=== PATIENT | female | born 1950 | race Caucasian/White ===

== ENCOUNTER 2018-01-06 11:35 | Outpatient (CLI) | payer BC, MEDICARE | END 2018-01-06 11:36 | disposition home or self-care (01) | LOC: BICMAMMO 11:35 | PROVIDERS: ATTEND Internal Medicine | DX: Z12.31 Encounter for screening mammogram for malignant neoplasm of breast (principal); R92.1 Mammographic calcification found on diagnostic imaging of breast; Z80.3 Family history of malignant neoplasm of breast | CPT/HCPCS: 77063; 77067 ==

== ENCOUNTER 2020-07-19 14:20 | Outpatient (CLI) | payer MEDICARE, BC | END 2020-07-19 14:21 | disposition home or self-care (01) | LOC: BICMAMMO 14:20 | PROVIDERS: ATTEND Internal Medicine | DX: Z12.31 Encounter for screening mammogram for malignant neoplasm of breast (principal); Z80.3 Family history of malignant neoplasm of breast | CPT/HCPCS: 77063; 77067 ==

== ENCOUNTER 2021-01-17 10:09 | Outpatient (CLI) | payer MEDICARE, BC | END 2021-01-17 10:10 | disposition home or self-care (01) | LOC: BICULT 10:09 | PROVIDERS: ATTEND Internal Medicine Cardiovascular Disease | DX: E04.2 Nontoxic multinodular goiter (principal) | CPT/HCPCS: 76536 ==

== ENCOUNTER 2021-01-19 07:53 | Outpatient (CLI) | payer MEDICARE, BC ==
[2021-01-19] MEDS ORDERED: Iopamidol-370 76% 500 ML 1 ML ONE (11:56)
== END 2021-01-19 07:54 | disposition home or self-care (01) ==
LOC: BICCT 07:53
PROVIDERS: ATTEND Internal Medicine Cardiovascular Disease
DX: I65.23 Occlusion and stenosis of bilateral carotid arteries (principal); I67.2 Cerebral atherosclerosis
CPT/HCPCS: 70498; 82565; Q9967

== ENCOUNTER 2021-10-25 11:30 | Outpatient (CLI) | payer MEDICARE, BC | END 2021-10-25 11:31 | disposition home or self-care (01) | LOC: BICMAMMO 11:30 | PROVIDERS: ATTEND Internal Medicine | DX: Z12.31 Encounter for screening mammogram for malignant neoplasm of breast (principal); Z80.3 Family history of malignant neoplasm of breast | CPT/HCPCS: 77063; 77067 ==

== ENCOUNTER 2022-02-22 20:59 | Inpatient (IN) | payer MEDICARE, BC ==
[~2022-02-22 20:59] MED LIST: Iopamidol-370 76% 500 ML 1 ML ONE
[2022-02-22 22:01] LABS: #Basophils 0.1 thou/uL (0.0-0.2); #Eosinphils 0.5 thou/uL (0.0-0.7); #Lymphocytes 2.3 thou/uL (1.20-3.40); #Monocytes 0.8 thou/uL (0.11-0.59); #Neutrophils 7.9 thou/uL (1.40-6.50); %Basophils 0.9 % (0.0-1.0); %Eosinophils 4.4 % (0.0-10.0); %Lymphocytes 19.5 % (21.0-51.0); %Monocytes 7.1 % (0.0-10.0); Hemoglobin 11.6 g/dL (12.0-16.0); Mean Corpuscular HGB CONC 33.7 g/dL (32.0-36.0); Mean Corpuscular Hemoglobin 31.3 pg (27.0-31.0); Mean Corpuscular Volume 92.9 fl (78.0-98.0); Mean Platelet Volume 7.8 fL (7.4-10.4); Platelet Count 289 10x3/uL (130-400); Red Blood Cell (RBC) Count 3.72 mill/uL (4.20-5.40); White Blood Cell (WBC) Count 11.5 10x3/uL (4.8-10.8)
[2022-02-22] MEDS ORDERED: Ondansetron PF 4 MG/2 ML Vial ONE (22:11)
[2022-02-22 22:16] LABS: ALT (SGPT) 17 U/L (8-55); AST (SGOT) 27 U/L (5-34); Albumin 4.3 g/dL (3.4-4.8); Alkaline Phosphatase 72 U/L (40-110); Anion Gap 13 mmol/L (10-20); BUN (Urea Nitrogen) 9 mg/dL (9.8-20.1); Bilirubin, Total 0.7 mg/dL (0.2-1.2); Calc. Creatinine Clearance 0 mL/min (70-130); Calcium 9.2 mg/dL (7.8-10.44); Carbon Dioxide 22 mmol/L (23-31); Chloride 99 mmol/L (98-107); Estimated GFR 89; Globulin 2.9 g/dL (2.4-3.5); Glucose 88 mg/dL (80-115); Potassium 3.7 mmol/L (3.5-5.1); Protein, Total 7.2 g/dL (5.8-8.1); Sodium 130 mmol/L (136-145)
[2022-02-22 22:33] LABS: Bilirubin Negative (Negative); Blood, Urine Negative (Negative); Clarity Clear (Clear); Glucose, Urine (Dipstick) Normal (Negative); Ketone, Urine 60 mg/dL (Negative); Leukocyte Negative Leu/uL (Negative); Nitrite Negative (Negative); Protein, Urine (Dipstick) Negative (Neg-Trace); Specific Gravity, Urine 1.022 (1.002-1.036); Urobilinogen Normal mg/dL (Less than 2); pH, Urine 5.5 (5.0-9.0)
[2022-02-22] MEDS ORDERED: Morphine 4 MG/ML VIAL ONE (22:34)
[2022-02-22 22:37] LABS: Other Microscopic Description Less than 2 mL rec'd
[2022-02-23] MEDS ORDERED: Piperacillin/Tazobactam 4.5 GM VIAL ONE (01:21)
[2022-02-23] MEDS ORDERED: PROPOFOL 200 MG/20 ML VIAL ONE (02:39)
[2022-02-23] MEDS ORDERED: PHENYLEPHRINE-NS 100 MCG/ML 10 ML SYRINGE ONE (02:39)
[2022-02-23] MEDS ORDERED: Morphine Sulfate 2 MG/ML SYRINGE SLOW IVP PRN (02:59)
[2022-02-23] MEDS ORDERED: HYDROmorphone 2 MG/ML VIAL SLOW IVP PRN (02:59)
[2022-02-23] MEDS ORDERED: Promethazine HCl 25 MG/ML VIAL IM PRN (02:59)
[2022-02-23] MEDS ORDERED: PACU-Morphine 4MG/ML VIAL SLOW IVP PRN (02:59)
[2022-02-23] MEDS ORDERED: Promethazine HCl 25 MG/ML VIAL IVPB PRN (02:59)
[2022-02-23] MEDS ORDERED: Ondansetron HCl/PF 4 MG/2 ML Vial IVP PRN (02:59)
[2022-02-23] MEDS ORDERED: Ondansetron PF 4 MG/2 ML Vial IVP PRN (04:26)
[2022-02-23] MEDS ORDERED: Acetaminophen 650 MG Suppository PR PRN (04:26)
[2022-02-23] MEDS ORDERED: Ondansetron ODT 4 MG TAB PO PRN (04:26)
[2022-02-23] MEDS: Sodium Chloride 0.9% 1,000 ML IV SCH ×2 (05:56→19:12)
[2022-02-23 06:28] VITALS: BMI 21.2
[2022-02-23 07:56] LABS: #Basophils 0.1 thou/uL (0.0-0.2); #Eosinphils 0.5 thou/uL (0.0-0.7); #Lymphocytes 1.6 thou/uL (1.20-3.40); #Monocytes 0.5 thou/uL (0.11-0.59); #Neutrophils 5.1 thou/uL (1.40-6.50); %Basophils 1.2 % (0.0-1.0); %Eosinophils 5.9 % (0.0-10.0); %Lymphocytes 20.8 % (21.0-51.0); %Monocytes 6.3 % (0.0-10.0); %Neutrophils 65.8 % (42.0-75.0); Hemoglobin 10.5 g/dL (12.0-16.0); Mean Corpuscular HGB CONC 34.9 g/dL (32.0-36.0); Mean Corpuscular Hemoglobin 32.5 pg (27.0-31.0); Mean Corpuscular Volume 93.2 fl (78.0-98.0); Mean Platelet Volume 7.5 fL (7.4-10.4); Platelet Count 252 10x3/uL (130-400); Red Blood Cell (RBC) Count 3.23 mill/uL (4.20-5.40); White Blood Cell (WBC) Count 7.7 10x3/uL (4.8-10.8)
[2022-02-23 08:18] LABS: Anion Gap 10 mmol/L (10-20); BUN (Urea Nitrogen) 8 mg/dL (9.8-20.1); Calc. Creatinine Clearance 68 mL/min (70-130); Calcium 8.3 mg/dL (7.8-10.44); Carbon Dioxide 24 mmol/L (23-31); Chloride 102 mmol/L (98-107); Estimated GFR 94; Glucose 71 mg/dL (80-115); Potassium 3.8 mmol/L (3.5-5.1); Sodium 132 mmol/L (136-145)
[2022-02-23] MEDS: Amlodipine 5 MG TAB PO SCH ×2 (10:15→19:56)
[2022-02-23] MEDS: Bupropion 100 MG SR TAB PO SCH (10:15)
[2022-02-23] MEDS ORDERED: GoLYTELY 4,000 ml Bottle PO SCH (11:15)
[2022-02-23] MEDS: Rosuvastatin 10 MG TAB PO SCH (19:56)
[2022-02-24] MEDS ORDERED: GoLYTELY 4,000 ml Bottle PO SCH (00:15)
[2022-02-24] MEDS ORDERED: cefOXitin 2 GM in Sodium Chloride 0.9% 100 ML IVPB SCH ×2 (07:15→16:01)
[2022-02-24] MEDS: Sodium Chloride 0.9% 1,000 ML IV SCH ×3 (08:47→23:23)
[2022-02-24] MEDS: Amlodipine 5 MG TAB PO SCH ×2 (08:49→20:42)
[2022-02-24] MEDS: Bupropion 100 MG SR TAB PO SCH (10:08)
[2022-02-24] MEDS ORDERED: Sodium Chloride 0.9% 100 ML ONE (10:35)
[2022-02-24] MEDS ORDERED: cefOXitin 2 GM VIAL ONE (10:35)
[2022-02-24] MEDS ORDERED: fentaNYL PF 100 MCG/2 ML SYRINGE ONE (11:44)
[2022-02-24] MEDS ORDERED: HYDROmorphone 0.5 MG/0.5 ML SYRINGE ONE ×2 (11:45→14:21)
[2022-02-24] MEDS ORDERED: Ketamine 50 MG/ML (10ML VIAL) ONE (11:46)
[2022-02-24] MEDS ORDERED: PHENYLEPHRINE-NS 100 MCG/ML 10 ML SYRINGE ONE (11:59)
[2022-02-24] MEDS ORDERED: PROPOFOL 200 MG/20 ML VIAL ONE (11:59)
[2022-02-24] MEDS ORDERED: NEOSTIGMINE 3 MG/3 ML SYR 3 MG/3 ML SYRINGE ONE (11:59)
[2022-02-24] MEDS ORDERED: Dexamethasone 20 MG/5 ML VIAL ONE (11:59)
[2022-02-24] MEDS ORDERED: ePHEDrine 50 MG/ML VIAL ONE (11:59)
[2022-02-24] MEDS ORDERED: Glycopyrrolate 0.2 MG/ML 5 ML SYRINGE ONE (11:59)
[2022-02-24] MEDS ORDERED: Rocuronium Bromide 10 MG/ML (10ML VIAL) ONE (11:59)
[2022-02-24] MEDS ORDERED: Ondansetron PF 4 MG/2 ML Vial ONE (11:59)
[2022-02-24] MEDS ORDERED: Albumin 25% 100 ML ONE (12:25)
[2022-02-24] MEDS ORDERED: Promethazine HCl 25 MG/ML VIAL IVPB PRN (14:18)
[2022-02-24] MEDS ORDERED: Ondansetron HCl/PF 4 MG/2 ML Vial IVP PRN (14:18)
[2022-02-24] MEDS ORDERED: Meperidine HCl/PF 25 MG/ML VIAL SLOW IVP PRN (14:18)
[2022-02-24] MEDS ORDERED: Promethazine HCl 25 MG/ML VIAL IM PRN (14:18)
[2022-02-24] MEDS ORDERED: HYDROmorphone 2 MG/ML VIAL SLOW IVP PRN (14:18)
[2022-02-24] MEDS ORDERED: FENTANYL 50 MCG/ML 1 ML VIAL ONE ×2 (14:29→14:45)
[2022-02-24] MEDS: Morphine 4 MG/ML VIAL SLOW IVP PRN ×2 (17:08→20:41)
[2022-02-24] MEDS: cefOXitin 2 GM in Sodium Chloride 0.9% 100 ML IVPB SCH (20:39)
[2022-02-24] MEDS: Enoxaparin Sodium 40 MG/0.4 ML SYRINGE SC SCH (20:41)
[2022-02-24] MEDS: Rosuvastatin 10 MG TAB PO SCH (20:42)
[2022-02-25] MEDS: cefOXitin 2 GM in Sodium Chloride 0.9% 100 ML IVPB SCH ×2 (04:11→13:00)
[2022-02-25] MEDS: Morphine 4 MG/ML VIAL SLOW IVP PRN (04:11)
[2022-02-25] MEDS: Acetaminophen 325 MG TAB PO PRN (04:12)
[2022-02-25 06:44] LABS: #Lymphocytes 0.9 thou/uL (1.20-3.40); #Monocytes 0.8 thou/uL (0.11-0.59); #Neutrophils 10.3 thou/uL (1.40-6.50); %Basophils 0.2 % (0.0-1.0); %Eosinophils 0.1 % (0.0-10.0); %Lymphocytes 7.2 % (21.0-51.0); %Monocytes 6.4 % (0.0-10.0); %Neutrophils 86.1 % (42.0-75.0); Mean Corpuscular Hemoglobin 31.5 pg (27.0-31.0); Mean Corpuscular Volume 95.2 fl (78.0-98.0); Mean Platelet Volume 7.8 fL (7.4-10.4); Platelet Count 309 10x3/uL (130-400); RBC Distribution Width 11.3 % (11.5-14.5); Red Blood Cell (RBC) Count 3.19 mill/uL (4.20-5.40)
[2022-02-25 07:06] LABS: Anion Gap 14 mmol/L (10-20); BUN (Urea Nitrogen) 9 mg/dL (9.8-20.1); Calc. Creatinine Clearance 56 mL/min (70-130); Calcium 8.4 mg/dL (7.8-10.44); Carbon Dioxide 21 mmol/L (23-31); Chloride 100 mmol/L (98-107); Estimated GFR 75; Glucose 130 mg/dL (80-115); Potassium 3.8 mmol/L (3.5-5.1); Sodium 131 mmol/L (136-145)
[2022-02-25] MEDS: HYDROcodone/Acetaminophen 5/325 mg Tablet PO PRN ×2 (09:34→17:12)
[2022-02-25] MEDS: Amlodipine 5 MG TAB PO SCH ×2 (09:36→21:12)
[2022-02-25] MEDS: Bupropion 100 MG SR TAB PO SCH (17:24)
[2022-02-25] MEDS: Sodium Chloride 0.9% 1,000 ML IV SCH ×2 (17:24→21:13)
[2022-02-25] MEDS: Enoxaparin Sodium 40 MG/0.4 ML SYRINGE SC SCH (21:13)
[2022-02-25] MEDS: Rosuvastatin 10 MG TAB PO SCH (21:13)
[2022-02-26] MEDS: HYDROcodone/Acetaminophen 5/325 mg Tablet PO PRN ×4 (00:22→22:59)
[2022-02-26 05:51] LABS: #Eosinphils 0.2 thou/uL (0.0-0.7); #Lymphocytes 1.1 thou/uL (1.20-3.40); #Monocytes 0.5 thou/uL (0.11-0.59); #Neutrophils 6.8 thou/uL (1.40-6.50); %Basophils 0.2 % (0.0-1.0); %Lymphocytes 12.8 % (21.0-51.0); %Monocytes 5.9 % (0.0-10.0); Hemoglobin 9.2 g/dL (12.0-16.0); Mean Corpuscular HGB CONC 33.6 g/dL (32.0-36.0); Mean Corpuscular Hemoglobin 31.5 pg (27.0-31.0); Mean Corpuscular Volume 93.8 fl (78.0-98.0); Mean Platelet Volume 7.6 fL (7.4-10.4); Platelet Count 248 10x3/uL (130-400); RBC Distribution Width 11.1 % (11.5-14.5); Red Blood Cell (RBC) Count 2.92 mill/uL (4.20-5.40); White Blood Cell (WBC) Count 8.6 10x3/uL (4.8-10.8)
[2022-02-26] MEDS: 1/2 NS w/KCL 20 mEq 1,000 ML IV SCH ×3 (06:22→23:02)
[2022-02-26 06:31] LABS: Anion Gap 11 mmol/L (10-20); BUN (Urea Nitrogen) 5 mg/dL (9.8-20.1); Calc. Creatinine Clearance 84 mL/min (70-130); Calcium 8.3 mg/dL (7.8-10.44); Carbon Dioxide 26 mmol/L (23-31); Chloride 96 mmol/L (98-107); Estimated GFR 99; Glucose 103 mg/dL (80-115); Potassium 3.2 mmol/L (3.5-5.1); Sodium 130 mmol/L (136-145)
[2022-02-26] MEDS ORDERED: Mag-Al 1200 mg/1200 mg/30 ML UDCUP PO PRN (06:32)
[2022-02-26] MEDS: Bupropion 100 MG SR TAB PO SCH (08:44)
[2022-02-26] MEDS: Amlodipine 5 MG TAB PO SCH ×2 (08:44→22:56)
[2022-02-26] MEDS ORDERED: Potassium Chloride 20 MEQ TAB PO SCH (09:15)
[2022-02-26] MEDS: Acetaminophen 325 MG TAB PO PRN (11:47)
[2022-02-26] MEDS: Enoxaparin Sodium 40 MG/0.4 ML SYRINGE SC SCH (22:57)
[2022-02-27] MEDS: Rosuvastatin 10 MG TAB PO SCH ×2 (02:01→20:08)
[2022-02-27] MEDS: 1/2 NS w/KCL 20 mEq 1,000 ML IV SCH (02:02)
[2022-02-27] MEDS: Acetaminophen 325 MG TAB PO PRN ×3 (06:02→20:08)
[2022-02-27 06:27] LABS: #Eosinphils 0.4 thou/uL (0.0-0.7); #Lymphocytes 1.4 thou/uL (1.20-3.40); #Monocytes 0.4 thou/uL (0.11-0.59); #Neutrophils 5.7 thou/uL (1.40-6.50); %Basophils 0.6 % (0.0-1.0); %Lymphocytes 17.5 % (21.0-51.0); %Monocytes 4.8 % (0.0-10.0); %Neutrophils 72.2 % (42.0-75.0); Hemoglobin 8.5 g/dL (12.0-16.0); Mean Corpuscular HGB CONC 33.4 g/dL (32.0-36.0); Mean Corpuscular Hemoglobin 31.4 pg (27.0-31.0); Mean Corpuscular Volume 93.8 fl (78.0-98.0); Platelet Count 247 10x3/uL (130-400); RBC Distribution Width 11.2 % (11.5-14.5); Red Blood Cell (RBC) Count 2.71 mill/uL (4.20-5.40); White Blood Cell (WBC) Count 7.9 10x3/uL (4.8-10.8)
[2022-02-27 06:37] LABS: Anion Gap 9 mmol/L (10-20); BUN (Urea Nitrogen) Less than 4 mg/dL (9.8-20.1); Calc. Creatinine Clearance 89 mL/min (70-130); Calcium 8.3 mg/dL (7.8-10.44); Carbon Dioxide 28 mmol/L (23-31); Chloride 98 mmol/L (98-107); Estimated GFR 100; Glucose 96 mg/dL (80-115); Potassium 3.9 mmol/L (3.5-5.1); Sodium 131 mmol/L (136-145)
[2022-02-27] MEDS: Bupropion 100 MG SR TAB PO SCH (08:49)
[2022-02-27] MEDS: Amlodipine 5 MG TAB PO SCH ×2 (08:49→18:12)
[2022-02-27] MEDS: Enoxaparin Sodium 40 MG/0.4 ML SYRINGE SC SCH (20:07)
[2022-02-28 06:29] LABS: Anion Gap 11 mmol/L (10-20); BUN (Urea Nitrogen) 4 mg/dL (9.8-20.1); Calc. Creatinine Clearance 83 mL/min (70-130); Calcium 8.6 mg/dL (7.8-10.44); Carbon Dioxide 30 mmol/L (23-31); Chloride 96 mmol/L (98-107); Estimated GFR 98; Glucose 97 mg/dL (80-115); Potassium 3.8 mmol/L (3.5-5.1); Sodium 133 mmol/L (136-145)
[2022-02-28] MEDS: Acetaminophen 325 MG TAB PO PRN ×2 (08:10→13:44)
[2022-02-28] MEDS: Amlodipine 5 MG TAB PO SCH (08:10)
[2022-02-28] MEDS: Bupropion 100 MG SR TAB PO SCH (08:11)
[2022-02-28 12:35] VITALS: BP 166/80; TEMP 98.8
== END 2022-02-28 14:45 | disposition home or self-care (01) | DRG 330 ==
LOC: ERS 20:59 → SDC/OP 02-23 02:30 → SJJU 02-23 04:05 → SURG A 02-27 18:31
PROVIDERS: ADMIT Surgery; ATTEND Internal Medicine
PROC: 0D9N80Z Drainage of Sigmoid Colon with Drainage Device, Via Natural or Artificial Opening Endoscopic (ICD-10-PCS; 2022-02-23)
PROC: 0DTN0ZZ Resection of Sigmoid Colon, Open Approach (ICD-10-PCS; principal; 2022-02-24)
DX: K56.2 Volvulus (principal); E87.1 Hypo-osmolality and hyponatremia; E78.5 Hyperlipidemia, unspecified; K59.09 Other constipation; G25.81 Restless legs syndrome; D64.9 Anemia, unspecified; F32.9 Major depressive disorder, single episode, unspecified; K21.9 Gastro-esophageal reflux disease without esophagitis; K56.7 Ileus, unspecified; R33.8 Other retention of urine; E87.6 Hypokalemia; Z79.899 Other long term (current) drug therapy; Z98.51 Tubal ligation status; Z79.82 Long term (current) use of aspirin
CPT/HCPCS: 36415; 74018; 74177; 80048; 80053; 81003; 83605; 85025; 87040; 88307; 93005; 93010; 96374; 96375; C1776; J0694; J1100; J1170; J1650; J2270; J2405; J2543; J2704; J3010; J3480; J3490; J7050; P9047; Q9967

== ENCOUNTER 2022-03-28 09:48 | Inpatient (IN) | payer MEDICARE, BC ==
[2022-03-28] MEDS ORDERED: Ondansetron PF 4 MG/2 ML Vial ONE ×2 (10:50→15:44)
[2022-03-28 11:04] LABS: Hemoglobin 13.4 g/dL (12.0-16.0); Mean Corpuscular HGB CONC 31.8 g/dL (32.0-36.0); Mean Corpuscular Hemoglobin 29.4 pg (27.0-31.0); Mean Corpuscular Volume 92.4 fl (78.0-98.0); Platelet Count 494 10x3/uL (130-400); Red Blood Cell (RBC) Count 4.56 mill/uL (4.20-5.40); White Blood Cell (WBC) Count 25.4 10x3/uL (4.8-10.8)
[2022-03-28] MEDS ORDERED: Vancomycin 1 GM/200 ML (FROZEN) BAG ONE (11:22)
[2022-03-28 11:23] LABS: ALT (SGPT) 14 U/L (8-55); AST (SGOT) 16 U/L (5-34); Albumin 3.5 g/dL (3.4-4.8); Alkaline Phosphatase 67 U/L (40-110); Anion Gap 14 mmol/L (10-20); BUN (Urea Nitrogen) 17 mg/dL (9.8-20.1); Bilirubin, Total 0.5 mg/dL (0.2-1.2); Calc. Creatinine Clearance 0 mL/min (70-130); Calcium 8.8 mg/dL (7.8-10.44); Carbon Dioxide 22 mmol/L (23-31); Chloride 102 mmol/L (98-107); Estimated GFR 83; Globulin 2.9 g/dL (2.4-3.5); Glucose 147 mg/dL (80-115); Magnesium 1.9 mg/dL (1.6-2.6); Potassium 4.1 mmol/L (3.5-5.1); Protein, Total 6.4 g/dL (5.8-8.1); Sodium 134 mmol/L (136-145)
[2022-03-28] MEDS ORDERED: Piperacillin/Tazobactam 4.5 GM in Sodium Chloride 0.9% 100 ML IVPB SCH (11:30)
[2022-03-28] MEDS ORDERED: Vancomycin 1 GM in Premix Bag 1 BAG IVPB SCH (11:30)
[2022-03-28 11:31] LABS: Band 2 % (5-11); Lymphocytes 3 % (21-51); MDiff Complete? YES; Monocytes 2 % (0-10); Neutrophil 93 % (42-75); Platelet Morphology Comment Appears Increased; Stomatocytes SLIGHT = 2-5 cells (100X) (0-1/hpf)
[2022-03-28] MEDS ORDERED: Piperacillin/Tazobactam 4.5 GM VIAL ONE (11:51)
[2022-03-28] MEDS ORDERED: Iopamidol-370 76% 500 ML 1 ML ONE (15:07)
[2022-03-28] MEDS ORDERED: Vancomycin HCl 125 MG/5 ML (BATCHED) UDCUP PO SCH (16:45)
[2022-03-28] MEDS: Sodium Chloride 0.9% 1,000 ML IV SCH (17:41)
[2022-03-28 18:25] VITALS: BMI 18.3
[2022-03-28] MEDS: Ondansetron PF 4 MG/2 ML Vial IVP PRN (21:23)
[2022-03-28] MEDS: Vancomycin HCl 125 MG/5 ML (BATCHED) UDCUP PO SCH (23:21)
[2022-03-29] MEDS: Sodium Chloride 0.9% 1,000 ML IV SCH ×3 (02:09→23:55)
[2022-03-29] MEDS: Vancomycin HCl 125 MG/5 ML (BATCHED) UDCUP PO SCH ×4 (05:17→23:55)
[2022-03-29] MEDS: Rosuvastatin 10 MG TAB PO SCH (08:27)
[2022-03-29] MEDS: Saccharomyces boulardii 250 MG CAP PO SCH (08:27)
[2022-03-29] MEDS: Amlodipine 5 MG TAB PO SCH ×2 (08:27→20:19)
[2022-03-29] MEDS: Ondansetron PF 4 MG/2 ML Vial IVP PRN ×2 (08:28→15:28)
[2022-03-29] MEDS: Enoxaparin Sodium 40 MG/0.4 ML SYRINGE SC SCH (08:28)
[2022-03-29 09:50] LABS: #Lymphocytes 1.3 thou/uL (1.20-3.40); #Monocytes 1.7 thou/uL (0.11-0.59); #Neutrophils 24.8 thou/uL (1.40-6.50); %Basophils 0.2 % (0.0-1.0); %Eosinophils 0.1 % (0.0-10.0); %Lymphocytes 4.7 % (21.0-51.0); %Monocytes 6.1 % (0.0-10.0); %Neutrophils 88.9 % (42.0-75.0); Hemoglobin 12.4 g/dL (12.0-16.0); Mean Corpuscular Hemoglobin 30.8 pg (27.0-31.0); Mean Corpuscular Volume 93.4 fl (78.0-98.0); Mean Platelet Volume 9.1 fL (7.4-10.4); Platelet Count 336 10x3/uL (130-400); RBC Distribution Width 12.1 % (11.5-14.5); Red Blood Cell (RBC) Count 4.04 mill/uL (4.20-5.40); White Blood Cell (WBC) Count 27.9 10x3/uL (4.8-10.8)
[2022-03-29 10:13] LABS: Anion Gap 13 mmol/L (10-20); BUN (Urea Nitrogen) 18 mg/dL (9.8-20.1); Calc. Creatinine Clearance 59 mL/min (70-130); Carbon Dioxide 20 mmol/L (23-31); Chloride 107 mmol/L (98-107); Potassium 3.7 mmol/L (3.5-5.1); Sodium 136 mmol/L (136-145)
[2022-03-29 10:14] LABS: Calcium 8.4 mg/dL (7.8-10.44); Estimated GFR 94; Glucose 142 mg/dL (80-115)
[2022-03-29] MEDS: metroNIDAZOLE 500 MG in Premix Bag 1 BAG IVPB SCH ×2 (15:29→21:28)
[2022-03-29] MEDS: Acetaminophen 325 MG TAB PO PRN (20:22)
[2022-03-30] MEDS: metroNIDAZOLE 500 MG in Premix Bag 1 BAG IVPB SCH ×3 (05:37→21:13)
[2022-03-30] MEDS: Vancomycin HCl 125 MG/5 ML (BATCHED) UDCUP PO SCH ×4 (05:37→23:20)
[2022-03-30] MEDS: Enoxaparin Sodium 40 MG/0.4 ML SYRINGE SC SCH (08:55)
[2022-03-30] MEDS: Rosuvastatin 10 MG TAB PO SCH (08:56)
[2022-03-30] MEDS: Saccharomyces boulardii 250 MG CAP PO SCH (08:56)
[2022-03-30] MEDS: Sodium Chloride 0.9% 1,000 ML IV SCH ×2 (08:56→20:33)
[2022-03-30] MEDS: Amlodipine 5 MG TAB PO SCH ×2 (08:56→20:33)
[2022-03-31] MEDS: Sodium Chloride 0.9% 1,000 ML IV SCH (05:09)
[2022-03-31] MEDS: metroNIDAZOLE 500 MG in Premix Bag 1 BAG IVPB SCH ×3 (05:09→21:39)
[2022-03-31] MEDS: Vancomycin HCl 125 MG/5 ML (BATCHED) UDCUP PO SCH ×3 (05:13→17:22)
[2022-03-31 06:31] LABS: #Eosinphils 0.3 thou/uL (0.0-0.7); #Lymphocytes 1.6 thou/uL (1.20-3.40); #Neutrophils 11.2 thou/uL (1.40-6.50); %Basophils 0.3 % (0.0-1.0); %Eosinophils 1.8 % (0.0-10.0); %Lymphocytes 11.1 % (21.0-51.0); %Monocytes 7.2 % (0.0-10.0); %Neutrophils 79.6 % (42.0-75.0); Hemoglobin 9.6 g/dL (12.0-16.0); Mean Corpuscular HGB CONC 32.5 g/dL (32.0-36.0); Mean Corpuscular Hemoglobin 30.5 pg (27.0-31.0); Mean Corpuscular Volume 93.8 fl (78.0-98.0); Mean Platelet Volume 7.7 fL (7.4-10.4); Platelet Count 268 10x3/uL (130-400); RBC Distribution Width 11.7 % (11.5-14.5); Red Blood Cell (RBC) Count 3.15 mill/uL (4.20-5.40)
[2022-03-31 06:50] LABS: Anion Gap 10 mmol/L (10-20); BUN (Urea Nitrogen) 5 mg/dL (9.8-20.1); Calc. Creatinine Clearance 78 mL/min (70-130); Calcium 7.5 mg/dL (7.8-10.44); Carbon Dioxide 25 mmol/L (23-31); Chloride 99 mmol/L (98-107); Estimated GFR 101; Glucose 106 mg/dL (80-115); Sodium 131 mmol/L (136-145)
[2022-03-31 06:57] LABS: Potassium 2.6 mmol/L (3.5-5.1)
[2022-03-31] MEDS ORDERED: Potassium Chloride 40 MEQ in Premix Bag 1 BAG IVPB SCH (07:30)
[2022-03-31] MEDS: NS 0.9% w/ 20 MEQ KCL 1,000 ML/1,000 ML BAG IV SCH ×2 (07:55→20:24)
[2022-03-31] MEDS: Amlodipine 5 MG TAB PO SCH ×2 (07:57→20:23)
[2022-03-31] MEDS: Enoxaparin Sodium 40 MG/0.4 ML SYRINGE SC SCH (07:57)
[2022-03-31] MEDS: Saccharomyces boulardii 250 MG CAP PO SCH (07:58)
[2022-03-31] MEDS: Rosuvastatin 10 MG TAB PO SCH (07:58)
[2022-03-31] MEDS: Potassium Chloride 20 MEQ in Premix Bag 1 BAG IVPB SCH ×2 (07:58→11:02)
[2022-03-31] MEDS ORDERED: Magnesium 2 GM/50 ML(in water) 2 GM in Premix Bag 1 BAG IVPB SCH (08:00)
[2022-03-31] MEDS ORDERED: Potassium Chloride 20 MEQ TAB PO SCH (08:00)
[2022-03-31] MEDS ORDERED: Loratadine 10 MG TAB PO SCH (10:00)
[2022-03-31] MEDS ORDERED: Fluticasone Propionate Nasal Spray 16 gm Bottle NASAL SCH (10:00)
[2022-03-31] MEDS: Ondansetron PF 4 MG/2 ML Vial IVP PRN (22:54)
[2022-04-01] MEDS: Vancomycin HCl 125 MG/5 ML (BATCHED) UDCUP PO SCH ×5 (01:05→23:46)
[2022-04-01] MEDS ORDERED: Famotidine 20 MG TAB PO SCH (01:45)
[2022-04-01] MEDS: Acetaminophen 325 MG TAB PO PRN (02:27)
[2022-04-01] MEDS: metroNIDAZOLE 500 MG in Premix Bag 1 BAG IVPB SCH ×3 (05:22→21:00)
[2022-04-01 07:50] LABS: #Basophils 0.1 thou/uL (0.0-0.2); #Eosinphils 0.2 thou/uL (0.0-0.7); #Lymphocytes 1.4 thou/uL (1.20-3.40); #Neutrophils 10.9 thou/uL (1.40-6.50); %Basophils 0.5 % (0.0-1.0); %Eosinophils 1.6 % (0.0-10.0); %Lymphocytes 10.1 % (21.0-51.0); %Monocytes 7.2 % (0.0-10.0); %Neutrophils 80.7 % (42.0-75.0); Mean Corpuscular HGB CONC 34.9 g/dL (32.0-36.0); Mean Corpuscular Hemoglobin 32.3 pg (27.0-31.0); Mean Corpuscular Volume 92.4 fl (78.0-98.0); Mean Platelet Volume 7.5 fL (7.4-10.4); Platelet Count 260 10x3/uL (130-400); RBC Distribution Width 11.6 % (11.5-14.5); Red Blood Cell (RBC) Count 3.11 mill/uL (4.20-5.40); White Blood Cell (WBC) Count 13.5 10x3/uL (4.8-10.8)
[2022-04-01 08:15] LABS: Anion Gap 12 mmol/L (10-20); BUN (Urea Nitrogen) 5 mg/dL (9.8-20.1); Calc. Creatinine Clearance 88 mL/min (70-130); Calcium 7.6 mg/dL (7.8-10.44); Carbon Dioxide 22 mmol/L (23-31); Chloride 101 mmol/L (98-107); Estimated GFR 104; Glucose 82 mg/dL (80-115); Magnesium 1.7 mg/dL (1.6-2.6); Potassium 3.3 mmol/L (3.5-5.1); Sodium 132 mmol/L (136-145)
[2022-04-01] MEDS: Enoxaparin Sodium 40 MG/0.4 ML SYRINGE SC SCH (08:43)
[2022-04-01] MEDS: Saccharomyces boulardii 250 MG CAP PO SCH (08:43)
[2022-04-01] MEDS: Rosuvastatin 10 MG TAB PO SCH (08:43)
[2022-04-01] MEDS: Loratadine 10 MG TAB PO SCH (08:43)
[2022-04-01] MEDS: Amlodipine 5 MG TAB PO SCH ×2 (08:43→20:53)
[2022-04-01] MEDS: Fluticasone Propionate Nasal Spray 16 gm Bottle NASAL SCH (08:44)
[2022-04-01] MEDS: NS 0.9% w/ 20 MEQ KCL 1,000 ML/1,000 ML BAG IV SCH ×2 (08:45→10:11)
[2022-04-01] MEDS ORDERED: Magnesium 2 GM/50 ML(in water) 2 GM in Premix Bag 1 BAG IVPB SCH (10:00)
[2022-04-01] MEDS ORDERED: Potassium Chloride 20 MEQ TAB PO SCH (10:00)
[2022-04-02] MEDS: metroNIDAZOLE 500 MG in Premix Bag 1 BAG IVPB SCH ×3 (05:06→21:21)
[2022-04-02] MEDS: Vancomycin HCl 125 MG/5 ML (BATCHED) UDCUP PO SCH ×3 (05:07→18:02)
[2022-04-02] MEDS: NS 0.9% w/ 20 MEQ KCL 1,000 ML/1,000 ML BAG IV SCH ×2 (05:09→21:20)
[2022-04-02 07:35] LABS: #Basophils 0.1 thou/uL (0.0-0.2); #Eosinphils 0.4 thou/uL (0.0-0.7); #Lymphocytes 1.7 thou/uL (1.20-3.40); #Monocytes 1.1 thou/uL (0.11-0.59); #Neutrophils 11.1 thou/uL (1.40-6.50); %Basophils 0.4 % (0.0-1.0); %Eosinophils 2.6 % (0.0-10.0); %Monocytes 7.7 % (0.0-10.0); %Neutrophils 77.4 % (42.0-75.0); Hemoglobin 10.3 g/dL (12.0-16.0); Mean Corpuscular HGB CONC 33.3 g/dL (32.0-36.0); Mean Corpuscular Hemoglobin 31.1 pg (27.0-31.0); Mean Corpuscular Volume 93.3 fl (78.0-98.0); Mean Platelet Volume 7.9 fL (7.4-10.4); Platelet Count 282 10x3/uL (130-400); RBC Distribution Width 11.7 % (11.5-14.5); Red Blood Cell (RBC) Count 3.32 mill/uL (4.20-5.40); White Blood Cell (WBC) Count 14.4 10x3/uL (4.8-10.8)
[2022-04-02 07:53] LABS: Anion Gap 11 mmol/L (10-20); BUN (Urea Nitrogen) Less than 4 mg/dL (9.8-20.1); Calc. Creatinine Clearance 85 mL/min (70-130); Calcium 7.6 mg/dL (7.8-10.44); Carbon Dioxide 25 mmol/L (23-31); Chloride 99 mmol/L (98-107); Estimated GFR 102; Glucose 97 mg/dL (80-115); Magnesium 1.7 mg/dL (1.6-2.6); Potassium 3.5 mmol/L (3.5-5.1); Sodium 131 mmol/L (136-145)
[2022-04-02] MEDS: Saccharomyces boulardii 250 MG CAP PO SCH (09:40)
[2022-04-02] MEDS: Rosuvastatin 10 MG TAB PO SCH (09:40)
[2022-04-02] MEDS: Famotidine 20 MG TAB PO SCH (09:40)
[2022-04-02] MEDS: Amlodipine 5 MG TAB PO SCH ×2 (09:40→21:21)
[2022-04-02] MEDS: Loratadine 10 MG TAB PO SCH (09:40)
[2022-04-02] MEDS: Fluticasone Propionate Nasal Spray 16 gm Bottle NASAL SCH (09:40)
[2022-04-02] MEDS: Enoxaparin Sodium 40 MG/0.4 ML SYRINGE SC SCH (09:40)
[2022-04-03] MEDS: Vancomycin HCl 125 MG/5 ML (BATCHED) UDCUP PO SCH ×2 (00:26→05:40)
[2022-04-03] MEDS: metroNIDAZOLE 500 MG in Premix Bag 1 BAG IVPB SCH (05:40)
[2022-04-03 07:21] LABS: #Basophils 0.1 thou/uL (0.0-0.2); #Eosinphils 0.4 thou/uL (0.0-0.7); #Lymphocytes 1.9 thou/uL (1.20-3.40); #Monocytes 1.2 thou/uL (0.11-0.59); %Basophils 0.5 % (0.0-1.0); %Eosinophils 2.6 % (0.0-10.0); %Lymphocytes 12.8 % (21.0-51.0); %Monocytes 8.4 % (0.0-10.0); %Neutrophils 75.7 % (42.0-75.0); Hemoglobin 10.8 g/dL (12.0-16.0); Mean Corpuscular Volume 91.2 fl (78.0-98.0); Mean Platelet Volume 8.3 fL (7.4-10.4); Platelet Count 324 10x3/uL (130-400); RBC Distribution Width 11.5 % (11.5-14.5); Red Blood Cell (RBC) Count 3.48 mill/uL (4.20-5.40); White Blood Cell (WBC) Count 14.6 10x3/uL (4.8-10.8)
[2022-04-03 07:50] LABS: Anion Gap 15 mmol/L (10-20); BUN (Urea Nitrogen) Less than 4 mg/dL (9.8-20.1); Calc. Creatinine Clearance 80 mL/min (70-130); Calcium 8.3 mg/dL (7.8-10.44); Carbon Dioxide 24 mmol/L (23-31); Chloride 99 mmol/L (98-107); Estimated GFR 101; Glucose 99 mg/dL (80-115); Potassium 3.5 mmol/L (3.5-5.1); Sodium 134 mmol/L (136-145)
[2022-04-03] MEDS: Enoxaparin Sodium 40 MG/0.4 ML SYRINGE SC SCH (08:12)
[2022-04-03] MEDS: Loratadine 10 MG TAB PO SCH (08:13)
[2022-04-03] MEDS: Saccharomyces boulardii 250 MG CAP PO SCH (08:13)
[2022-04-03] MEDS: Fluticasone Propionate Nasal Spray 16 gm Bottle NASAL SCH (08:13)
[2022-04-03] MEDS: Rosuvastatin 10 MG TAB PO SCH (08:13)
[2022-04-03] MEDS: Famotidine 20 MG TAB PO SCH (08:13)
[2022-04-03] MEDS: Amlodipine 5 MG TAB PO SCH (08:13)
[2022-04-03 08:32] VITALS: BP 154/80; TEMP 99
[2022-04-03] MEDS ORDERED: Famotidine 20 MG TAB PO SCH (21:00)
== END 2022-04-03 11:24 | disposition home or self-care (01) | DRG 872 ==
LOC: ERS 09:48 → T4-A 15:45
PROVIDERS: ADMIT Internal Medicine; ATTEND Family Medicine
DX: A41.4 Sepsis due to anaerobes (principal); A04.72 Enterocolitis due to Clostridium difficile, not specified as recurrent; E87.1 Hypo-osmolality and hyponatremia; E44.0 Moderate protein-calorie malnutrition; Z68.1 Body mass index [BMI] 19.9 or less, adult; Z20.822 Contact with and (suspected) exposure to COVID-19; E87.6 Hypokalemia; E83.42 Hypomagnesemia; K59.09 Other constipation; G25.81 Restless legs syndrome; F32.A Depression, unspecified; E78.00 Pure hypercholesterolemia, unspecified; I10 Essential (primary) hypertension; E86.0 Dehydration; Z98.51 Tubal ligation status; Z79.899 Other long term (current) drug therapy; Z79.82 Long term (current) use of aspirin
CPT/HCPCS: 36415; 71045; 74177; 80048; 80053; 83605; 83735; 84484; 85025; 87040; 87324; 87449; 93005; 96361; 96365; 96367; 96375; 96376; J1650; J2405; J2543; J3370; J3370-JW; J3475; J3480; J3490; J7050; Q9967; U0003; U0005